=== PATIENT | male | born 1950 | race Caucasian/White ===

== ENCOUNTER 2021-04-08 10:30 | Day surgery (SDC) | payer MEDICARE, OTHER ==
[~2021-04-08] VITALS: Ht 167.6 cm; Wt 94.3 kg
[~2021-04-08 10:30] MED LIST: AMLO1TAB24 PO; ASPI-527 PO; ASPI81TA26 PO; ATEN100T PO; ATOR1TAB21 PO; BACL10TA2 PO; DIOV320T PO; DIOV320T6 PO; FOLI1TAB11 PO; LABE100T4 PO; LABE20TAB PO; LEVO50TA5 PO; LOSA100T5 PO; LR 1,000 ML IV ONE; NICO14DI3 TD; PLAV1TAB2 PO; TERA10CA3 PO; THERTAB52 PO; THIA50CA PO; ZOCO40TA PO
[2021-04-08] MEDS ORDERED: dexameTHASONE 4 MG/ML 1ML VIAL (J1100 PER 1MG) As Ordered ONE (12:35)
[2021-04-08] MEDS ORDERED: ONDANSETRON 4MG/2ML VIAL As Ordered ONE (12:35)
[2021-04-08] MEDS ORDERED: ROCURONIUM BROMIDE 50 MG/5 ML VIAL As Ordered ONE ×2 (12:35→15:07)
[2021-04-08] MEDS ORDERED: LIDOCAINE 2% 100MG/5ML SDV (FOR ANES.) As Ordered ONE (12:35)
[2021-04-08] MEDS ORDERED: propofoL 200 MG/20 ML VIAL As Ordered ONE (12:35)
[2021-04-08] MEDS ORDERED: METOCLOPRAMIDE INJ 10MG/2ML VIAL (J2765 PER 1) As Ordered ONE (12:35)
[2021-04-08] MEDS ORDERED: MIDAZOLAM INJ 2MG/2ML VIAL (J2250 PER 1MG) As Ordered ONE (12:36)
[2021-04-08] MEDS ORDERED: fentaNYL 100 MCG/2 ML INJECTION (J3010) As Ordered ONE (12:38)
[2021-04-08] MEDS ORDERED: BUPIVACAINE HCL 0.25% 30ML VIAL As Ordered ONE (13:17)
[2021-04-08] MEDS ORDERED: LABETALOL 100MG/20ML VIAL As Ordered ONE (15:07)
[2021-04-08] MEDS ORDERED: KETOROLAC 60MG 2ML VIAL As Ordered ONE (15:07)
[2021-04-08] MEDS ORDERED: SUGAMMADEX SODIUM 500 MG/5 ML VIAL (BRIDION) As Ordered ONE (15:07)
[2021-04-08] MEDS ORDERED: HYDR-4429 PO (16:06)
[2021-04-08] MEDS ORDERED: fentaNYL 100 MCG/2 ML INJECTION (J3010) IV PRN (16:35)
[2021-04-08] MEDS ORDERED: ONDANSETRON 4MG/2ML VIAL IV PRN (16:35)
[2021-04-08] MEDS ORDERED: oxyCODONE 5MG TAB PO PRN (16:35)
[2021-04-08] MEDS ORDERED: LR 1,000 ML IV SCH (16:35)
[2021-04-08] MEDS ORDERED: ACETAMINOPHEN TAB 650MG DOSE (2X325MG) PO PRN (17:10)
[2021-04-08] MEDS ORDERED: NORCO, ANEXSIA 5/325MG TABLET (HYDROcodone/ACETAMINOPHEN) PO PRN (17:10)
[2021-04-08 17:50] VITALS: BP 126/66
== END 2021-04-08 18:20 | disposition home or self-care (01) ==
LOC: M SDC 10:30
PROVIDERS: ATTEND Surgery
DX: K40.90 Unilateral inguinal hernia, without obstruction or gangrene, not specified as recurrent (principal); I10 Essential (primary) hypertension; E78.5 Hyperlipidemia, unspecified; E03.9 Hypothyroidism, unspecified; F32.9 Major depressive disorder, single episode, unspecified; G47.33 Obstructive sleep apnea (adult) (pediatric); Z87.891 Personal history of nicotine dependence; Z79.02 Long term (current) use of antithrombotics/antiplatelets; Z79.82 Long term (current) use of aspirin; Z86.73 Personal history of transient ischemic attack (TIA), and cerebral infarction without residual deficits; Z79.899 Other long term (current) drug therapy
CPT/HCPCS: 49650; C1781; J1100; J1885; J2250; J2405; J2765; J3010; S2900

== ENCOUNTER → 2023-06-17 | Outpatient (CLI) | payer MEDICARE ==
[~2023-06-17] MED LIST changes: +CLOP75TA99 PO; +HYDR-4429 PO; -LABE100T4 PO; +LABE100T6 PO; -LR 1,000 ML IV ONE; -PLAV1TAB2 PO; +SIMV-254 PO; -ZOCO40TA PO
[2023-06-17 17:19] LABS: HEMOGLOBIN 14.2 g/dl (13.5-17.5); MEAN CORPUSCULAR HEMOGLOBIN 32.3 pg (27.0-33.0); MEAN CORPUSCULAR HGB CONC 34.6 g/dl (32.0-36.5); MEAN CORPUSCULAR VOLUME 93.4 fl (80.0-96.0); PLATELET COUNT, AUTOMATED 225 10^3/uL (150-450); RED BLOOD COUNT 4.39 10^6/uL (4.30-6.10)
[2023-06-17 17:43] LABS: PROSTATIC SPECIFIC AG MONITOR 3.91 NG/ML (< 4.00)
[2023-06-17 17:46] LABS: ALBUMIN 4.4 G/DL (3.2-5.2); ALKALINE PHOSPHATASE 119 U/L (46-116); ALT/SGPT 37 U/L (7.0-40); AST/SGOT 26 U/L (<34); BILIRUBIN,TOTAL 0.9 MG/DL (0.3-1.2); BLOOD UREA NITROGEN 18 MG/DL (9-23); CALCIUM LEVEL 9.3 MG/DL (8.3-10.6); CARBON DIOXIDE LEVEL 31 MMOL/L (20-31); CHLORIDE LEVEL 105 MMOL/L (98-107); CHOLESTEROL LEVEL 130 MG/DL (<200); CHOLESTEROL RISK RATIO 2.27 (<5); GLOMERULAR FILTRATION RATE > 60.0 (>42); GLUCOSE, FASTING 92 MG/DL (74-106); HDL CHOLESTEROL 57.2 MG/DL (>40); LDL CHOLESTEROL 53.2 MG/DL (<100); NON-HDL-C 72.8 MG/DL; POTASSIUM SERUM 4.3 MMOL/L (3.5-5.1); SODIUM LEVEL 141 MMOL/L (136-145); TOTAL PROTEIN 6.8 G/DL (5.7-8.2); TRIGLYCERIDES LEVEL 98 MG/DL (<150)
[2023-06-17 17:48] LABS: THYROID STIMULATING HORMONE 5.094 uIU/ML (0.55-4.78)
[2023-06-17 17:49] LABS: APPEARANCE, URINE CLEAR (CLEAR); BACTERIA, URINE AUTO NEGATIVE (NEGATIVE); BILIRUBIN, URINE AUTO NEGATIVE (NEGATIVE); BLOOD, URINE BLOOD NEGATIVE (NEGATIVE); COLOR, URINE YELLOW (YELLOW); GLUCOSE, URINE (UA) AUTO NEGATIVE (NEGATIVE); KETONE, URINE AUTO NEGATIVE (NEGATIVE); LEUKOCYTE ESTERASE, URINE AUTO NEGATIVE (NEGATIVE); MUCUS, URINE SMALL (NEGATIVE); NITRITE, URINE AUTO NEGATIVE (NEGATIVE); PROTEIN, URINE AUTO NEGATIVE (NEGATIVE); RBC, URINE AUTO 0 /HPF (0-3); SQUAMOUS EPITHELIAL CELL UR AU 0 /HPF (0-6); UROBILINOGEN, URINE AUTO 0.2 mg/dL (0.0-2.0); WBC, URINE AUTO 0 /HPF (0-3)
[2023-06-18 11:31] LABS: WHITE BLOOD COUNT 6.6 10^3/uL (4.0-10.0)
== END ==
LOC: M WUC 12:26
PROVIDERS: ATTEND Physician Assistant
DX: I10 Essential (primary) hypertension (principal); E78.5 Hyperlipidemia, unspecified; E03.9 Hypothyroidism, unspecified; Z12.5 Encounter for screening for malignant neoplasm of prostate; R35.1 Nocturia; I63.30 Cerebral infarction due to thrombosis of unspecified cerebral artery

== ENCOUNTER → 2023-10-05 | Outpatient (CLI) | payer OTHER | LOC: M WUC 08:39 | PROVIDERS: ATTEND Physician Assistant | DX: E03.9 Hypothyroidism, unspecified (principal) ==

== ENCOUNTER → 2024-10-16 | Outpatient (CLI) | payer OTHER ==
[2024-10-16 12:15] LABS: PLATELET COUNT, AUTOMATED 226 10^3/uL (150-450)
[2024-10-16 12:40] LABS: ALT/SGPT 59.0 U/L (7.0-40); AST/SGOT 61.0 U/L (<34); CALCIUM LEVEL 9.4 MG/DL (8.3-10.6); CARBON DIOXIDE LEVEL 28.0 MMOL/L (20-31); CHLORIDE LEVEL 102.0 MMOL/L (98-107); CHOLESTEROL LEVEL 141.0 MG/DL (<200); CHOLESTEROL RISK RATIO 2.21 (<5); CREATININE FOR GFR 0.93 MG/DL (0.70-1.30); GLOMERULAR FILTRATION RATE 87.8 (>42); LDL CHOLESTEROL 65.0 MG/DL (<100); NON-HDL-C 77.2 MG/DL; POTASSIUM SERUM 4.1 MMOL/L (3.5-5.1); PROSTATIC SPECIFIC AG MONITOR 4.9 NG/ML (< 4.00); SODIUM LEVEL 139.0 MMOL/L (136-145); TRIGLYCERIDES LEVEL 61.0 MG/DL (<150)
== END ==
LOC: M WUC 08:13
PROVIDERS: ATTEND Physician Assistant
DX: I10 Essential (primary) hypertension (principal); E78.5 Hyperlipidemia, unspecified; Z12.5 Encounter for screening for malignant neoplasm of prostate; R35.1 Nocturia; E03.9 Hypothyroidism, unspecified; I63.30 Cerebral infarction due to thrombosis of unspecified cerebral artery

== ENCOUNTER → 2024-12-07 | Outpatient (CLI) | payer MEDICARE ==
[~2024-12-07] MED LIST changes: +AMLO2.5T3 PO; +LEVO75TA4 PO
[2024-12-07 18:56] LABS: PLATELET COUNT, AUTOMATED 226 10^3/uL (150-450)
[2024-12-07 18:58] LABS: ALT/SGPT 76.0 U/L (7.0-40); AST/SGOT 57.0 U/L (<34); CALCIUM LEVEL 8.7 MG/DL (8.3-10.6); CARBON DIOXIDE LEVEL 28.0 MMOL/L (20-31); CHLORIDE LEVEL 97.0 MMOL/L (98-107); CREATININE FOR GFR 0.91 MG/DL (0.70-1.30); GLOMERULAR FILTRATION RATE 89.6 (>42); POTASSIUM SERUM 3.6 MMOL/L (3.5-5.1); SODIUM LEVEL 132.0 MMOL/L (136-145)
== END ==
LOC: M WUC 13:22
PROVIDERS: ATTEND Physician Assistant
DX: Z01.818 Encounter for other preprocedural examination (principal); I10 Essential (primary) hypertension

== ENCOUNTER 2024-12-21 09:26 | Day surgery (SDC) | payer MEDICARE ==
[~2024-12-21] VITALS: Ht 167.6 cm; Wt 87.0 kg
[2024-12-21] MEDS ORDERED: ROCURONIUM BROMIDE 50MG/5ML VIAL As Ordered ONE (09:32)
[2024-12-21] MEDS ORDERED: dexAMETHasone 4 MG/ML 1 ML VIAL As Ordered ONE (09:32)
[2024-12-21] MEDS ORDERED: LIDOCAINE 2% 100 MG/5 ML SDV (FOR ANES.) As Ordered ONE (09:32)
[2024-12-21] MEDS ORDERED: KETOROLAC 30 MG/ML 1 ML VIAL As Ordered ONE (09:32)
[2024-12-21] MEDS ORDERED: ONDANSETRON 4MG 2ML VIAL As Ordered ONE (09:32)
[2024-12-21] MEDS: ceFAZolin SOD 2 GM IV ONCE IV ONE (11:25)
[2024-12-21] MEDS: HEPARIN SOD 5000 UNITS/ML 1 ML VIAL/SYRINGE SQ ONE (11:35)
[2024-12-21] MEDS ORDERED: ACETAMINOPHEN 1000MG/100ML IV BAG As Ordered ONE (11:44)
[2024-12-21] MEDS ORDERED: PHENYTOIN 100MG/2ML VIAL As Ordered ONE (12:04)
[2024-12-21] MEDS ORDERED: HYDROmorphone HCL 2 MG/ML 1 ML VIAL As Ordered ONE (12:05)
[2024-12-21] MEDS ORDERED: SUGAMMADEX SODIUM 200 MG/2 ML VIAL As Ordered ONE (13:04)
[2024-12-21] MEDS ORDERED: LR 1,000 ML IV SCH (13:15)
[2024-12-21] MEDS ORDERED: HYDROMORPHONE HCL 0.5 MG/0.5 ML SYRINGE IV PRN (13:15)
[2024-12-21] MEDS ORDERED: ONDANSETRON 4MG 2ML VIAL IV PRN (13:15)
[2024-12-21 14:45] VITALS: BP 133/76; TEMP 97.4; O2SAT 94
== END 2024-12-21 15:01 | disposition home or self-care (01) ==
LOC: M SDC 09:26
PROVIDERS: ATTEND Surgery
DX: K42.9 Umbilical hernia without obstruction or gangrene (principal); I10 Essential (primary) hypertension; E78.5 Hyperlipidemia, unspecified; I73.9 Peripheral vascular disease, unspecified; Z79.01 Long term (current) use of anticoagulants; Z79.899 Other long term (current) drug therapy; Z87.891 Personal history of nicotine dependence; E03.9 Hypothyroidism, unspecified; F32.A Depression, unspecified; Z86.73 Personal history of transient ischemic attack (TIA), and cerebral infarction without residual deficits; G47.33 Obstructive sleep apnea (adult) (pediatric)
CPT/HCPCS: 49591; C1781; J0131; J0665; J0688; J1100; J1171; J1885; J2405; J3010; S2900

== ENCOUNTER → 2025-03-06 | Outpatient (CLI) | payer MEDICARE ==
[~2025-03-06] MED LIST changes: -LABE100T6 PO; +LABE100T91 PO
[2025-03-06 14:22] LABS: PLATELET COUNT, AUTOMATED 219 10^3/uL (150-450)
[2025-03-06 14:47] LABS: ALT/SGPT 37.0 U/L (7.0-40); AST/SGOT 33.0 U/L (<34); CALCIUM LEVEL 8.5 MG/DL (8.3-10.6); CARBON DIOXIDE LEVEL 33.0 MMOL/L (20-31); CHLORIDE LEVEL 104.0 MMOL/L (98-107); CHOLESTEROL LEVEL 130.0 MG/DL (<200); CHOLESTEROL RISK RATIO 2.33 (<5); CREATININE FOR GFR 0.97 MG/DL (0.70-1.30); GLOMERULAR FILTRATION RATE 82.9 (>42); LDL CHOLESTEROL 61.7 MG/DL (<100); NON-HDL-C 74.3 MG/DL; POTASSIUM SERUM 4.2 MMOL/L (3.5-5.1); PROSTATIC SPECIFIC AG MONITOR 4.53 NG/ML (< 4.00); SODIUM LEVEL 143.0 MMOL/L (136-145); TRIGLYCERIDES LEVEL 63.0 MG/DL (<150)
== END ==
LOC: M WUC 10:10
PROVIDERS: ATTEND Physician Assistant
DX: I10 Essential (primary) hypertension (principal); E78.2 Mixed hyperlipidemia; E03.9 Hypothyroidism, unspecified; Z12.5 Encounter for screening for malignant neoplasm of prostate; R35.1 Nocturia